=== PATIENT | male | born 1990 | race African-American/Black ===

== ENCOUNTER 2022-01-30 10:26 | Emergency (ER) | payer MEDICAID ==
[~2022-01-30] VITALS: Ht 190.5 cm; Wt 89.0 kg
[2022-01-30] MEDS ORDERED: SULF1TAB48 PO (12:39)
[2022-01-30] MEDS ORDERED: IBUP-2029 PO (12:39)
[2022-01-30 13:16] VITALS: BP 118/86
== END 2022-01-30 13:17 | disposition home or self-care (01) ==
LOC: ER 10:26
DX: L02.414 Cutaneous abscess of left upper limb (principal)
CPT/HCPCS: 99283

== ENCOUNTER 2022-09-18 15:26 | Emergency (ER) | payer SELFPAY ==
[~2022-09-18] VITALS: Ht 182.9 cm; Wt 80.0 kg
[~2022-09-18 15:26] MED LIST: IBUP-2029 PO; SULF1TAB48 PO
[2022-09-18] MEDS ORDERED: SODIUM CHLORIDE 0.9% 1,000 ML IV ONE (18:00)
[2022-09-18] MEDS ORDERED: NALOXONE HCL 0.4 MG/ML 1ML VIAL IV ONE (18:00)
[2022-09-18 19:13] LABS: BASOPHILS % 0.2 % (0.0-2.0); EOSINOPHILS % 0.1 % (0.0-5.0); HEMATOCRIT. 44.8 % (42.0-52.0); HEMOGLOBIN. 15.2 g/dL (14.0-18.0); LYMPHOCYTES % 13.8 % (20.0-50.0); MEAN CORPUSCULAR HEMOGLOBIN 32.3 pg (28.0-32.0); MEAN CORPUSCULAR VOLUME 95.3 fL (80.0-94.0); MEAN PLATELET VOLUME 8.9 fl (7.4-10.4); MONOCYTES % 3.2 % (2.0-8.0); NEUTROPHILS % 82.7 % (40.0-76.0); PLATELET 200 x1000/uL (130-400); RED CELL DISTRIBUTION WIDTH 12.3 % (11.6-14.6)
[2022-09-18 19:16] LABS: PROTHROMBIN TIME 10.7 sec (9.6-11.0)
[2022-09-18 19:17] LABS: CHLORIDE 111 mEq/L (98-107)
[2022-09-18 19:35] LABS: CREATINE KINASE 240 IU/L (39-308); ETHANOL BLOOD 220 mg/dL
[2022-09-18 23:30] VITALS: BP 124/74
== END 2022-09-19 00:09 | disposition home or self-care (01) ==
LOC: ER 15:26
DX: F10.129 Alcohol abuse with intoxication, unspecified (principal); Y90.8 Blood alcohol level of 240 mg/100 ml or more; T43.651A Poisoning by methamphetamines accidental (unintentional), initial encounter; F15.90 Other stimulant use, unspecified, uncomplicated; R41.82 Altered mental status, unspecified; R94.31 Abnormal electrocardiogram [ECG] [EKG]; Y92.89 Other specified places as the place of occurrence of the external cause
CPT/HCPCS: 36415; 70450; 71045; 80053; 80307; 80320; 80329; 82550; 84443; 85025; 85610; 93005; 96374; 99285; J2310; J7030; G0480

== ENCOUNTER 2024-04-30 21:20 | Emergency (ER) | payer MEDICAID ==
[~2024-04-30] VITALS: Ht 180.3 cm; Wt 95.0 kg
[2024-04-30 21:21] VITALS: O2SAT 99
[2024-04-30] MEDS: LACTATED RINGERS 1,000 ML IV SCH (22:01)
[2024-04-30 22:15] LABS: BASOPHILS % 0.2 % (0.0-2.0); EOSINOPHILS % 0.4 % (0.0-5.0); HEMATOCRIT. 46.7 % (42.0-52.0); HEMOGLOBIN. 15.9 g/dL (14.0-18.0); LYMPHOCYTES % 22.6 % (20.0-50.0); MEAN CORPUSCULAR HEMOGLOBIN 31.6 pg (28.0-32.0); MEAN CORPUSCULAR HGB CONC 34.1 g/dL (31.0-37.0); MEAN CORPUSCULAR VOLUME 92.6 fL (80.0-94.0); MEAN PLATELET VOLUME 9.2 fl (7.4-10.4); MONOCYTES % 7.8 % (2.0-8.0); PLATELET 221 x1000/uL (130-400); RED BLOOD CELL COUNT 5.05 mill/uL (4.7-6.1); RED CELL DISTRIBUTION WIDTH 13.3 % (11.6-14.6); WHITE BLOOD COUNT 8.2 x1000/uL (4.5-11.0)
[2024-04-30 22:23] LABS: CHLORIDE 107 mEq/L (98-107); POTASSIUM 3.5 mEq/L (3.5-5.1); SODIUM 143 mEq/L (136-145)
[2024-04-30 22:24] LABS: CALCIUM 9.2 mg/dL (8.7-10.4); CARBON DIOXIDE 27 mEq/L (21-32)
[2024-04-30 22:29] LABS: CREATININE 1.3 mg/dL (0.6-1.3); GLUCOSE 69 mg/dL (70-105); UREA NITROGEN BLOOD 14 mg/dL (9-23)
[2024-04-30 22:31] LABS: BETA HYDROXYBUTYRATE 0.2 mMol/L (0.0-0.3)
[2024-04-30] MEDS: DEXTROSE 50% WATER 50ML SYRINGE IV ONE (23:15)
[2024-05-01 01:30] VITALS: BP 108/56; PULSE 62; RESP 18; TEMP 98.2
[2024-05-01] MEDS: DEXTROSE 50% WATER 50ML SYRINGE IV NR (02:32)
== END 2024-05-01 05:04 | disposition home or self-care (01) ==
LOC: ER 21:20
DX: F10.129 Alcohol abuse with intoxication, unspecified (principal); E11.649 Type 2 diabetes mellitus with hypoglycemia without coma; Y90.9 Presence of alcohol in blood, level not specified
CPT/HCPCS: 36415; 80048; 82010; 82962; 85025; 96361; 96374; 99283